=== PATIENT | female | born 1975 | race African-American/Black ===

== ENCOUNTER 2017-01-27 23:06 | Emergency (ER) | payer SELFPAY ==
--- NOTE | 2017-01-28 04:08 | ER Document Report ---
ED General - General Chief Complaint: Abscess Stated Complaint: LEFT BREAST CONCERNS Notes: Patient is a 41-year-old female presents for complaint of a swollen and painful area over her left breast. She knows 3 days ago. No fevers. No vomiting. No history of infections of her breasts. No other complaints this time. No abnormal discharge from the nipple area. No previous mammogram performed. TRAVEL OUTSIDE OF THE [place] IN LAST 30 DAYS: No - Related Data Allergies/Adverse Reactions: Iodinated Contrast Media - Oral and [IV Dye, Iodine Containing] Allergy ( Verified 05/01/14 17:50) seafood Allergy (Severe, Uncoded 05/01/14 17:50) Past Medical History - Social History Smoking Status: Unknown if Ever Smoked Frequency of alcohol use: None Drug Abuse: None Family History: Reviewed & Not Pertinent Patient has suicidal ideation: No Patient has homicidal ideation: No Renal/ Medical History: Reports: Hx Ovarian Cysts. Denies: Hx Peritoneal Dialysis - Immunizations Immunizations up to date: Yes Hx Diphtheria, Pertussis, Tetanus Vaccination: Yes Review of Systems - Review of Systems Notes: My Normal Review Basic REVIEW OF SYSTEMS: CONSTITUTIONAL : Denies fever, chills, or sweats. Denies recent illness. RESPIRATORY: Denies cough, cold, or chest congestion. Denies shortness of breath, difficulty breathing, or wheezing. GASTROINTESTINAL: Denies abdominal pain. Denies nausea, vomiting, or diarrhea. Denies constipation. Last BM: MUSCULOSKELETAL: Denies neck or back pain or joint pain or swelling. SKIN: breast lump HEMATOLOGIC : Denies easy bruising or bleeding. LYMPHATIC: Denies swollen, enlarged glands. NEUROLOGICAL: Denies altered mental status or loss of consciousness. Denies headache. Denies weakness or paralysis or loss of use of either side. Denies problems with gait or speech. Denies sensory or motor loss. ALL OTHER SYSTEMS REVIEWED AND NEGATIVE. Physical Exam - Vital signs Vitals: Temp Pulse Resp BP Pulse Ox 98.8 F 82 18 130/87 H 99 01/28/17 00:55 01/28/17 00:55 01/28/17 00:55 01/28/17 00:55 01/28/17 00:55 - Notes Notes: General Appearance: Well nourished, alert, cooperative, no acute distress, mild obvious discomfort. Vitals: reviewed, See vital signs table. Head: no swelling or tenderness to the head Eyes: PERRL, EOMI, Conjuctiva clear Lungs: No wheezing, No rales, No rhonci, No accessory muscle use, good air exchange bilaterally. Heart: Normal rate, Regular rythm, No murmur, no rub Chest wall: Firm not over the mid outer portion of the left breast. No redness or erythema. No significant swelling. Area is tender to touch. Breast exam was performed with a female tech in the room as hand i tube bender. Skin: warm, dry, appropriate color, no rash Neuro: speech clear, oriented x 3, normal affect, responds appropriately to questions. Course - Vital Signs Vital signs: Temp Pulse Resp BP Pulse Ox 98.8 F 82 18 130/87 H 99 01/28/17 00:55 01/28/17 00:55 01/28/17 00:55 01/28/17 00:55 01/28/17 00:55 - Transfer of Care Notes: 01/28/17 05:40 Ultrasound shows 2 cysts in the breast. This is over their wishes having tenderness and pain. They do not appear consistent with abscess on the ultrasound. Still place her on clindamycin initially case there is an associated infection. Only concern is because of the sudden onset of these cysts. Has no redness or warmth to the breast. No signs of cellulitis so she with this. I informed her is very important that she falls up with women's health clinic so that she can get a mammogram and also get repeat ultrasounds to follow the progression of the cysts. She's encouraged return to ER immediately if she has an is, swelling, fevers, or any concerns at her breast is becoming more swollen. Patient agrees with plan will be discharged home. Dictation of this chart was performed using voice recognition software; therefore, there may be some unintended grammatical errors. Discharge - Discharge Clinical Impression: Breast cyst Qualifiers: Laterality: left Qualified Code(s): N60.02 - Solitary cyst of left breast Condition: Good Disposition: HOME, SELF-CARE Additional Instructions: Your ultrasound showed a breast cyst. It does not appear consistent with an abscess on ultrasound. Because of the rapid onset of the cyst we will place you on an antibiotic in case there is any associated infection. It is very important you follow up with the Women's health clinic for potential mammogram and possible repeat ultrasound to ensure resolution of the cyst. Please return to [facility] ER immediately if you have increased swelling to the breast, fevers, or warmth to the breast. Prescriptions: Clindamycin HCl 300 mg PO ASDIR #56 capsule Referrals: LORAINE SMITH MD [ACTIVE STAFF] - 02/01/17
[2017-01-28] MEDS ORDERED: CLINDAMYCIN HCL 150 MG CAPSULE PO ONE (05:36)
[2017-01-28 06:54] VITALS: BP 126/76
== END 2017-01-28 06:53 | disposition home or self-care (01) ==
LOC: ER 23:06
DX: N60.02 Solitary cyst of left breast (principal); Z91.041 Radiographic dye allergy status; Z91.013 Allergy to seafood
CPT/HCPCS: 76604; 99283

== ENCOUNTER 2017-07-06 14:15 | Emergency (ER) | payer SELFPAY ==
--- NOTE | 2017-07-06 15:29 | ER Document Report ---
ED General - General Chief Complaint: Pain With Urination Stated Complaint: STOMACH PAIN Time Seen by Provider: 07/06/17 15:26 Mode of Arrival: Ambulatory Information source: Patient Notes: 6-year-old female presents with complaints of left flank pain radiating to her leg as well as burning with urination. 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 IN LAST 30 DAYS: No - HPI Onset: Just prior to arrival Onset/Duration: Sudden Quality of pain: Achy Severity: Mild Pain Level: 1 Associated symptoms: Body/muscle aches Exacerbated by: Movement Relieved by: Denies Similar symptoms previously: No Recently seen / treated by doctor: No - Related Data Allergies/Adverse Reactions: Iodinated Contrast- Oral and IV Dye [IV Dye, Iodine Containing] Allergy ( Verified 05/01/14 17:50) seafood Allergy (Severe, Uncoded 05/01/14 17:50) Past Medical History - General Last Menstrual Period: 06/02/17 - Social History Smoking Status: Current Every Day Smoker Cigarette use (# per day): Yes Chew tobacco use (# tins/day): No Smoking Education Provided: No Frequency of alcohol use: Heavy Drug Abuse: None Family History: Reviewed & Not Pertinent Renal/ Medical History: Reports: Hx Ovarian Cysts. Denies: Hx Peritoneal Dialysis - Immunizations Immunizations up to date: Yes Hx Diphtheria, Pertussis, Tetanus Vaccination: No Review of Systems - Review of Systems Notes: REVIEW OF SYSTEMS: CONSTITUTIONAL : Denies fever, chills, or sweats. Denies recent illness. EENT: Denies eye, ear, throat, or mouth pain or symptoms. Denies nasal or sinus congestion or discharge. Denies throat, tongue, or mouth swelling or difficulty swallowing. CARDIOVASCULAR: Denies chest pain. Denies palpitations or racing or irregular heart beat. Denies ankle edema. RESPIRATORY: Denies cough, cold, or chest congestion. Denies shortness of breath, difficulty breathing, or wheezing. GASTROINTESTINAL: Denies abdominal pain or distention. Denies nausea, vomiting , or diarrhea. Denies blood in vomitus, stools, or per rectum. Denies black, tarry stools. Denies constipation. GENITOURINARY: Denies difficulty urinating, painful urination, burning, frequency, blood in urine, or discharge. FEMALE GENITOURINARY: Denies vaginal bleeding, heavy or abnormal periods, irregular periods. Denies vaginal discharge or odor. MUSCULOSKELETAL: Admits to left flank pain SKIN: Denies rash, lesions or sores. HEMATOLOGIC : Denies easy bruising or bleeding. LYMPHATIC: Denies swollen, enlarged glands. NEUROLOGICAL: Denies confusion or altered mental status. Denies passing out or loss of consciousness. Denies dizziness or lightheadedness. Denies headache. Denies weakness or paralysis or loss of use of either side. Denies problems with gait or speech. Denies sensory loss, numbness, or tingling. Denies seizures. PSYCHIATRIC: Denies anxiety or stress. Denies depression, suicidal ideation, or homicidal ideation. ALL OTHER SYSTEMS REVIEWED AND NEGATIVE. PHYSICAL EXAMINATION: GENERAL: Well-appearing, well-nourished and in no acute distress. HEAD: Atraumatic, normocephalic. EYES: Pupils equal round and reactive to light, extraocular movements intact, conjunctiva are normal. ENT: Nares patent, oropharynx clear without exudates. Moist mucous membranes. NECK: Normal range of motion, supple without lymphadenopathy LUNGS: Breath sounds clear to auscultation bilaterally and equal. No wheezes rales or rhonchi. HEART: Regular rate and rhythm without murmurs ABDOMEN: Soft, nontender, nondistended abdomen. No guarding, no rebound. No masses appreciated. Female : deferred Musculoskeletal: Normal range of motion, no pitting or edema. No cyanosis. NEUROLOGICAL: Cranial nerves grossly intact. Normal speech, normal gait. Normal sensory, motor exams PSYCH: Normal mood, normal affect. SKIN: Warm, Dry, normal turgor, no rashes or lesions noted. Dictation was performed using [employer] voice recognition software Physical Exam - Vital signs Vitals: Temp Pulse Resp BP Pulse Ox 97.7 F 83 20 133/89 H 99 07/06/17 14:26 07/06/17 14:26 07/06/17 14:26 07/06/17 14:26 07/06/17 14:26 Course - Re-evaluation Re-evalutation: 07/06/17 18:45 Patient's urinalysis noted no sign of infection however there was blood noted in the urine therefore CT was sent, no abnormality was seen there either. Patient will be given anti-inflammatories pain control as well as follow-up with her primary care physician. Patient biggest complaint is a work excuse until Monday which I will provide her. She otherwise looks well has no cauda equina concerns therefore I believe she is stable for discharge After performing a Medical Screening Examination, I estimate there is LOW risk for EXPANDING OR RUPTURED ABDOMINAL AORTIC ANEURYSM, CAUDA EQUINA SYNDROME, EPIDURAL MASS LESION, or HERNIATED DISK CAUSING SEVERE SPINAL STENOSIS, thus I consider the discharge disposition reasonable. I have reevaluated this patient multiple times and no significant life threatening changes are noted. The patient and I have discussed the diagnosis and risks, and we agree with discharging home and close follow-up. We also discussed returning to the Emergency Department immediately if new or worsening symptoms occur with the understanding that symptoms and presentations can change. We have discussed the symptoms which are most concerning (e.g., saddle anesthesia, urinary or bowel incontinence or retention, changing or worsening pain) that necessitate immediate return. - Vital Signs Vital signs: Temp Pulse Resp BP Pulse Ox 98.7 F 69 20 117/73 100 07/06/17 17:43 07/06/17 17:43 07/06/17 17:43 07/06/17 17:43 07/06/17 17:43 - Laboratory Laboratory results interpreted by me: 07/06/17 14:25 Urine Protein 30 H Urine Blood LARGE H - Diagnostic Test Radiology reviewed: Image reviewed, Reports reviewed - no acute abnormality Discharge - Discharge Clinical Impression: Flank pain Condition: Stable Disposition: HOME, SELF-CARE Instructions: Flank Pain ([facility]) Additional Instructions: Follow up with your physician tomorrow for further care or return to the ED IMMEDIATELY if symptoms worsen or new concerns occur. If you cannot afford to follow up with your primary care physician a list of low cost clinics have been provided at the end of your discharge papers as well. Prescriptions: Hydrocodone/Acetaminophen [[place] 5-325 mg Tablet] 1 tab PO Q6 #8 tablet Forms: Return to Work
[2017-07-06 16:41] LABS: AMORPHOUS SEDIMENT,URINE TRACE /HPF; APPEARANCE,URINE TURBID; BILIRUBIN,URINE NEGATIVE (NEGATIVE); GLUCOSE, URINE NEGATIVE (NEGATIVE); KETONES,URINE NEGATIVE (NEGATIVE); LEUKOCYTE ESTERASE,URINE NEGATIVE (NEGATIVE); NITRITE,URINE NEGATIVE (NEGATIVE); PROTEIN,URINE 30 mg/dL (NEGATIVE); URINE SPECIFIC GRAVITY 1.027; UROBILINOGEN,URINE NEGATIVE mg/dL (<2.0)
--- NOTE | 2017-07-06 17:24 | RADIOLOGY REPORT (SQ) ---
EXAM DESCRIPTION: CT LTD RENAL STONE PROTOCOL ON COMPLETED DATE/TIME: 07/06/2017 5:07 pm REASON FOR STUDY: left flank pain COMPARISON: None. TECHNIQUE: CT scan of the abdomen and pelvis performed without intravenous or oral contrast. Images reviewed with lung, soft tissue, and bone windows. Reconstructed coronal and sagittal MPR images revi ewed. All images stored on PACS. All CT scanners at this facility use dose modulation, iterative reconstruction, and/or weight based d osing when appropriate to reduce radiation dose to as low as reasonably achievable (ALARA). [facility]: Dose Right [facility]: CareDose [facility]: Dose Right [facility]: Teradose 4D [facility]: Smart [employer] RADIATION DOSE: Up-to-date CT equipment and radiation dose reduction techniques were employed. CTDIv ol: 5.1 mGy. DLP: 276 mGy-cm.mGy. LIMITATIONS: None. FINDINGS: LOWER CHEST: No significant findings. No nodules or infiltrates. NON-CONTRASTED LIVER, SPLEEN, ADRENALS: Evaluation limited by lack of IV contrast. No identified sign ificant masses. PANCREAS: No masses. No peripancreatic inflammatory changes. GALLBLADDER: No identified stones by CT criteria. No inflammatory changes to suggest cholecystitis. RIGHT KIDNEY AND URETER: No suspicious masses. Assessment limited by lack of IV contrast. No signif icant calcifications. No hydronephrosis or hydroureter. LEFT KIDNEY AND URETER: No suspicious masses. Assessment limited by lack of IV contrast. No signifi cant calcifications. No hydronephrosis or hydroureter. AORTA AND RETROPERITONEUM: No aneurysm. No retroperitoneal masses or adenopathy. BOWEL AND PERITONEAL CAVITY: No obvious masses or inflammatory changes. No free fluid. APPENDIX: Normal. PELVIS, BLADDER, AND ABDOMINAL WALL:No abnormal masses. No free fluid. Bladder normal. BONES: No significant findings. OTHER: No other significant finding. IMPRESSION: NO ACUTE PROCESS IN THE ABDOMEN OR PELVIS. COMMENT: Quality ID # [id number]: Final reports with documentation of one or more dose reduction techniques (e.g., Automated exposure control, adjustment of the mA and/or kV according to patient size, use of iterative reconstruction technique) TECHNICAL DOCUMENTATION: JOB ID: [id number] 1895 [employer]- All Rights Reserved
[2017-07-06 17:45] VITALS: BP 117/73
== END 2017-07-06 17:43 | disposition home or self-care (01) ==
LOC: ER 14:15
DX: R30.0 Dysuria (principal); R10.9 Unspecified abdominal pain; M79.1 Myalgia; F17.210 Nicotine dependence, cigarettes, uncomplicated
CPT/HCPCS: 76380; 81001; 81025; 99284

== ENCOUNTER 2018-03-12 15:59 | Emergency (ER) | payer SELFPAY ==
[2018-03-12] MEDS ORDERED: ASPIRIN 81 MG TABLET, CHEWABLE PO ONE (16:53)
--- NOTE | 2018-03-12 16:53 | ER Document Report ---
ED Medical Screen (RME) - General Chief Complaint: Back Pain Stated Complaint: BACK PAIN Time Seen by Provider: 03/12/18 16:47 Mode of Arrival: Medic Information source: Patient Notes: 42-year-old female presents with complaints of epigastric abdominal pain rating to her back and up through her chest. Patient admits to nausea vomiting denies any fevers or chills Patient denies any medical history I have greeted and performed a rapid initial assessment of this patient. A comprehensive ED assessment and evaluation of the patient, analysis of test results and completion of the medical decision making process will be conducted by additional ED providers. PHYSICAL EXAMINATION: GENERAL: Well-appearing, well-nourished and in no acute distress. HEAD: Atraumatic, normocephalic. EYES: Pupils equal round extraocular movements intact, conjunctiva are normal. ENT: Nares patent NECK: Normal range of motion LUNGS: No respiratory distress Musculoskeletal: Normal range of motion NEUROLOGICAL: Normal speech, normal gait. PSYCH tearful SKIN: Warm, Dry, normal turgor, no rashes or lesions noted. TRAVEL OUTSIDE OF THE [place] IN LAST 30 DAYS: No - Related Data Allergies/Adverse Reactions: Iodinated Contrast- Oral and IV Dye [IV Dye, Iodine Containing] Allergy ( Verified 03/12/18 16:01) seafood Allergy (Severe, Uncoded 03/12/18 16:01) Past Medical History - Social History Frequency of alcohol use: None Drug Abuse: None Renal/ Medical History: Reports: Hx Ovarian Cysts. Denies: Hx Peritoneal Dialysis - Immunizations Immunizations up to date: Yes Hx Diphtheria, Pertussis, Tetanus Vaccination: No History of Influenza Vaccine for 07/2017 - 11/2017 Season: No Physical Exam - Vital signs Vitals: Temp Pulse Resp BP Pulse Ox 98.6 F 66 20 133/78 H 100 03/12/18 16:11 03/12/18 16:11 03/12/18 16:11 03/12/18 16:11 03/12/18 16:11 Course - Vital Signs Vital signs: Temp Pulse Resp BP Pulse Ox 98.6 F 66 20 133/78 H 100 03/12/18 16:11 03/12/18 16:11 03/12/18 16:11 03/12/18 16:11 03/12/18 16:11
[2018-03-12 17:03] LABS: ABSOLUTE EOSINOPHILS # (AUTO) 0.1 10^3/uL (0.0-0.6); ABSOLUTE LYMPHOCYTES (AUTO) 1.6 10^3/uL (0.5-4.7); ABSOLUTE MONOCYTES (AUTO) 0.7 10^3/uL (0.1-1.4); ABSOLUTE NEUT (AUTO) 3.5 10^3/uL (1.7-8.2); BASOPHILS % (AUTO) 0.7 % (0-2); EOSINOPHILS % (AUTO) 1.5 % (0-6); HEMATOCRIT 32.7 % (36.0-47.0); HEMOGLOBIN 10.5 g/dL (12.0-15.5); LYMPHOCYTES % (AUTO) 27.1 % (13-45); MEAN CORPUSCULAR HEMOGLOBIN 23.4 pg (27.0-33.4); MEAN CORPUSCULAR HGB CONC 32.1 g/dL (32.0-36.0); MEAN CORPUSCULAR VOLUME 73 fl (80-97); MONOCYTES % (AUTO) 11.9 % (3-13); PLATELET COUNT 313 10^3/uL (150-450); RED BLOOD COUNT 4.47 10^6/uL (3.72-5.28); RED CELL DISTRIBUTION WIDTH 17.9 % (11.5-14.0); SEGMENTED NEUTROPHILS % (AUTO) 58.8 % (42-78); TOTAL CELLS COUNTED % (AUTO) 100 %
[2018-03-12 17:09] LABS: ALANINE AMINOTRANSFERASE 15 U/L (9-52); ALBUMIN 4.1 g/dL (3.5-5.0); ALKALINE PHOSPHATASE 62 U/L (38-126); ANION GAP 14 (5-19); ASPARTATE AMINO TRANSFERASE 29 U/L (14-36); BILIRUBIN,DIRECT 0.5 mg/dL (0.0-0.4); BILIRUBIN,TOTAL 0.5 mg/dL (0.2-1.3); BLOOD UREA NITROGEN 17 mg/dL (7-20); CALCIUM 9.3 mg/dL (8.4-10.2); CARBON DIOXIDE 22 mmol/L (22-30); CHLORIDE 102 mmol/L (98-107); CREATINE KINASE 87 U/L (30-135); GLUCOSE 95 mg/dL (75-110); LIPASE 46.6 U/L (23-300); POTASSIUM 4.2 mmol/L (3.6-5.0); SODIUM 138.2 mmol/L (137-145); TOTAL PROTEIN 6.9 g/dL (6.3-8.2)
[2018-03-12 17:23] LABS: CREATINE KINASE MB 0.28 ng/mL (<4.55)
[2018-03-12 17:24] LABS: TROPONIN I < 0.012 ng/mL
--- NOTE | 2018-03-12 17:40 | RADIOLOGY REPORT (SQ) ---
EXAM DESCRIPTION: CHEST SINGLE VIEW COMPLETED DATE/TIME: 03/12/2018 5:32 pm REASON FOR STUDY: chest pain COMPARISON: 07/08/2011 EXAM PARAMETERS: NUMBER OF VIEWS: One view. TECHNIQUE: Single frontal radiographic view of the chest acquired. RADIATION DOSE: NA LIMITATIONS: None. FINDINGS: LUNGS AND PLEURA: No opacities, masses or pneumothorax. No pleural effusion. MEDIASTINUM AND HILAR STRUCTURES: No masses. Contour normal. HEART AND VASCULAR STRUCTURES: Heart normal in size. Normal vasculature. BONES: No acute findings. HARDWARE: None in the chest. OTHER: No other significant finding. IMPRESSION: NO ACUTE RADIOGRAPHIC FINDING IN THE CHEST. TECHNICAL DOCUMENTATION: JOB ID: [id number] [place]-72 2010 [employer]- All Rights Reserved Reading location - IP/workstation name: [email or web address]
--- NOTE | 2018-03-12 18:23 | EKG REPORT ---
SEVERITY:- ABNORMAL ECG - SINUS RHYTHM CONSIDER LEFT VENTRICULAR HYPERTROPHY : Confirmed by: Bay Fritz MD 12-Mar-2018 18:23:15
[2018-03-12 18:26] LABS: APPEARANCE,URINE CLOUDY; BILIRUBIN,URINE NEGATIVE (NEGATIVE); COLOR,URINE AMBER; GLUCOSE, URINE NEGATIVE (NEGATIVE); KETONES,URINE 20 mg/dL (NEGATIVE); LEUKOCYTE ESTERASE,URINE NEGATIVE (NEGATIVE); NITRITE,URINE NEGATIVE (NEGATIVE); PROTEIN,URINE 30 mg/dL (NEGATIVE); URINE SPECIFIC GRAVITY 1.027
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
[2018-03-12] MEDS ORDERED: NORMAL SALINE 1000 ML 1,000 ML IV PRN (18:41)
[2018-03-12] MEDS ORDERED: FENTANYL CITRATE INJ/PF 100 MCG/2 ML AMPUL IV ONE (18:41)
[2018-03-12] MEDS ORDERED: DIPHENHYDRAMINE HCL 50 MG/ML VIAL IV ONE (18:41)
[2018-03-12] MEDS ORDERED: ONDANSETRON HCL INJ/PF 4 MG/2 ML SDV IV ONE (18:42)
[2018-03-12] MEDS ORDERED: ONDANSETRON 4 MG TAB.RAPDIS PO ONE (18:49)
--- NOTE | 2018-03-12 19:29 | RADIOLOGY REPORT (SQ) ---
EXAM DESCRIPTION: CT ABD/PELVIS NO ORAL OR IV COMPLETED DATE/TIME: 03/12/2018 7:11 pm REASON FOR STUDY: BACK PAIN, ABDOMINAL PAIN COMPARISON: 04/29/2014 TECHNIQUE: CT scan of the abdomen and pelvis performed without intravenous or oral contrast. Images reviewed with lung, soft tissue, and bone windows. Reconstructed coronal and sagittal MPR images revi ewed. All images stored on PACS. All CT scanners at this facility use dose modulation, iterative reconstruction, and/or weight based d osing when appropriate to reduce radiation dose to as low as reasonably achievable (ALARA). [facility]: Dose Right [facility]: CareDose [facility]: Dose Right [facility]: Teradose 4D [facility]: [employer] RADIATION DOSE: CT Rad equipment meets quality standard of care and radiation dose reduction techniq ues were employed. CTDIvol: 4.8 mGy. DLP: 255 mGy-cm.mGy. LIMITATIONS: None. FINDINGS: LOWER CHEST: No significant findings. No nodules or infiltrates. NON-CONTRASTED LIVER, SPLEEN, ADRENALS: Evaluation limited by lack of IV contrast. No identified sign ificant masses. PANCREAS: No masses. No peripancreatic inflammatory changes. GALLBLADDER: No identified stones by CT criteria. No inflammatory changes to suggest cholecystitis. RIGHT KIDNEY AND URETER: No suspicious masses. Assessment limited by lack of IV contrast. No signif icant calcifications. No hydronephrosis or hydroureter. LEFT KIDNEY AND URETER: No suspicious masses. Assessment limited by lack of IV contrast. No signifi cant calcifications. No hydronephrosis or hydroureter. AORTA AND RETROPERITONEUM: No aneurysm. No retroperitoneal masses or adenopathy. BOWEL AND PERITONEAL CAVITY: No obvious masses or inflammatory changes. No free fluid. APPENDIX: Normal. PELVIS, BLADDER, AND ABDOMINAL WALL:Multi fibroid uterus. No free fluid. Bladder normal. BONES: No significant findings. OTHER: No other significant finding. IMPRESSION: NO ACUTE PROCESS IN THE ABDOMEN OR PELVIS. COMMENT: Quality ID # [id number]: Final reports with documentation of one or more dose reduction techniques (e.g., Automated exposure control, adjustment of the mA and/or kV according to patient size, use of iterative reconstruction technique) TECHNICAL DOCUMENTATION: JOB ID: [id number] [place]-72 2010 [employer] [place]- All Rights Reserved Reading location - IP/workstation name: [employer]
[2018-03-12] MEDS ORDERED: DIAZEPAM 5 MG TABLET PO ONE (19:31)
[2018-03-12 22:22] VITALS: BP 99/62
== END 2018-03-12 22:28 | disposition home or self-care (01) ==
LOC: ER 15:59
DX: M54.5 Low back pain (principal); R10.84 Generalized abdominal pain; R07.9 Chest pain, unspecified; F17.200 Nicotine dependence, unspecified, uncomplicated
CPT/HCPCS: 93005; 99284; 96374; 96375; 36415; 82553; 82550; 83690; 85025; 81025; 80053; 81001; 84484; 71045; 74176; 93010; J1200; S0119; J3010

== ENCOUNTER 2018-03-16 15:57 | Emergency (ER) | payer SELFPAY ==
[2018-03-16] MEDS ORDERED: METOCLOPRAMIDE HCL INJ/PF 10 MG/2 ML SDV IM ONE (16:22)
[2018-03-16] MEDS ORDERED: DICYCLOMINE HCL 20 MG TABLET PO ONE (16:23)
--- NOTE | 2018-03-16 16:23 | ER Document Report ---
ED Medical Screen (RME) - General Chief Complaint: Abdominal Pain Stated Complaint: STOMACH/BACK PAIN, VOMITING Time Seen by Provider: 03/16/18 16:18 Notes: RAPID MEDICAL EVALUATION DISCLOSURE I have seen this patient as part of a Rapid Medical Evaluation and, if applicable, placed any initially appropriate orders. The patient will be seen and fully evaluated, including a full history and physical exam, by a provider ( in Main ED or Fast Track) when a room becomes available. 42-year-old female PMH chronic abdominal/back/chest pain ongoing for many years usually twice per month here with complaints of same. She was seen here Monday for the same thing and had unremarkable CT abdomen and chest x-ray as well as 2 negative troponins. She states that the symptoms started back up again the day after the ED visit. The medication she was prescribed for nausea is not helping and she states it is making her "throw up more". EXAM Right paraspinal lumbar muscle TTP Mild diffuse abdominal TTP TRAVEL OUTSIDE OF THE [place] IN LAST 30 DAYS: No - Related Data Allergies/Adverse Reactions: Iodinated Contrast- Oral and IV Dye [IV Dye, Iodine Containing] Allergy ( Verified 03/16/18 16:02) seafood Allergy (Severe, Uncoded 03/16/18 16:02) Past Medical History Renal/ Medical History: Reports: Hx Ovarian Cysts. Denies: Hx Peritoneal Dialysis Past Surgical History: Reports: Other - THORACOTOMY - Immunizations Immunizations up to date: Yes Hx Diphtheria, Pertussis, Tetanus Vaccination: No History of Influenza Vaccine for 07/2017 - 11/2017 Season: No Physical Exam - Vital signs Vitals: Temp Pulse Resp BP Pulse Ox 98.8 F 101 H 20 138/101 H 100 03/16/18 16:09 03/16/18 16:09 03/16/18 16:09 03/16/18 16:03/16/18 16:09 Course - Vital Signs Vital signs: Temp Pulse Resp BP Pulse Ox 98.8 F 101 H 20 138/101 H 100 03/16/18 16:03/16/18 16:03/16/18 16:03/16/18 16:03/16/18 16:09
[2018-03-16 16:53] LABS: ABSOLUTE EOSINOPHILS # (AUTO) 0.2 10^3/uL (0.0-0.6); ABSOLUTE LYMPHOCYTES (AUTO) 1.1 10^3/uL (0.5-4.7); ABSOLUTE MONOCYTES (AUTO) 0.8 10^3/uL (0.1-1.4); ABSOLUTE NEUT (AUTO) 4.1 10^3/uL (1.7-8.2); BASOPHILS % (AUTO) 0.4 % (0-2); EOSINOPHILS % (AUTO) 2.6 % (0-6); HEMATOCRIT 36.6 % (36.0-47.0); HEMOGLOBIN 11.7 g/dL (12.0-15.5); LYMPHOCYTES % (AUTO) 17.6 % (13-45); MEAN CORPUSCULAR HEMOGLOBIN 23.1 pg (27.0-33.4); MEAN CORPUSCULAR HGB CONC 31.9 g/dL (32.0-36.0); MEAN CORPUSCULAR VOLUME 73 fl (80-97); MONOCYTES % (AUTO) 13.1 % (3-13); PLATELET COUNT 393 10^3/uL (150-450); RED BLOOD COUNT 5.05 10^6/uL (3.72-5.28); RED CELL DISTRIBUTION WIDTH 18.1 % (11.5-14.0); SEGMENTED NEUTROPHILS % (AUTO) 66.3 % (42-78); TOTAL CELLS COUNTED % (AUTO) 100 %; WHITE BLOOD COUNT 6.2 10^3/uL (4.0-10.5)
[2018-03-16 16:58] LABS: APPEARANCE,URINE SLIGHTLY-CLOUDY; BILIRUBIN,URINE SMALL (NEGATIVE); COLOR,URINE AMBER; GLUCOSE, URINE NEGATIVE (NEGATIVE); KETONES,URINE 80 mg/dL (NEGATIVE); LEUKOCYTE ESTERASE,URINE NEGATIVE (NEGATIVE); NITRITE,URINE NEGATIVE (NEGATIVE); PROTEIN,URINE 100 mg/dL (NEGATIVE); URINE SPECIFIC GRAVITY 1.027
[2018-03-16] MEDS ORDERED: NORMAL SALINE 1000 ML 1,000 ML IV ONE (17:00)
[2018-03-16 17:03] LABS: ALANINE AMINOTRANSFERASE 30 U/L (9-52); ALKALINE PHOSPHATASE 48 U/L (38-126); ANION GAP 15 (5-19); ASPARTATE AMINO TRANSFERASE 28 U/L (14-36); BILIRUBIN,DIRECT 0.3 mg/dL (0.0-0.4); BILIRUBIN,TOTAL 0.7 mg/dL (0.2-1.3); BLOOD UREA NITROGEN 11 mg/dL (7-20); CALCIUM 9.8 mg/dL (8.4-10.2); CARBON DIOXIDE 24 mmol/L (22-30); CHLORIDE 102 mmol/L (98-107); GLUCOSE 90 mg/dL (75-110); LIPASE 43.8 U/L (23-300); POTASSIUM 3.9 mmol/L (3.6-5.0); SODIUM 141.3 mmol/L (137-145); TOTAL PROTEIN 8.2 g/dL (6.3-8.2)
[2018-03-16] MEDS ORDERED: LIDOCAINE 2% VISCOUS SOLN 20 ML UDCUP PO ONE (17:11)
[2018-03-16] MEDS ORDERED: MAG HYDROX/AL HYDROX/SIMETH SUSP 30 ML UDCUP PO ONE (17:11)
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
[2018-03-16] MEDS ORDERED: OXYCODONE-ACETAMINOPHEN 5-325 MG TABLET PO ONE (17:23)
[2018-03-16] MEDS ORDERED: LANSOPRAZOLE 30 MG TAB.RAP.DR PO ONE (18:11)
[2018-03-16 19:49] VITALS: BP 113/65
== END 2018-03-16 19:42 | disposition home or self-care (01) ==
LOC: ER 15:57
DX: K29.20 Alcoholic gastritis without bleeding (principal); R10.13 Epigastric pain; M54.5 Low back pain; M54.6 Pain in thoracic spine; M54.9 Dorsalgia, unspecified; R11.10 Vomiting, unspecified; R19.7 Diarrhea, unspecified; F17.200 Nicotine dependence, unspecified, uncomplicated; Z72.89 Other problems related to lifestyle
CPT/HCPCS: 99284; 96372; 96360; 36415; 83690; 84703; 85025; 80053; 81001; J3490 ×2; J2765; J7030

== ENCOUNTER 2019-03-07 14:16 | Emergency (ER) | payer SELFPAY ==
[2019-03-07] MEDS ORDERED: LIDOCAINE 2% VISCOUS SOLN 20 ML UDCUP PO ONE (14:46)
--- NOTE | 2019-03-07 15:08 | ER Document Report ---
HPI - HPI Time Seen by Provider: 03/07/19 14:45 Pain Level: 2 Notes: Patient is a 43-year-old female who presents to the ED complaining of left lower dental pain #18 x3 days. She has not noticed any obvious purulent discharge. Patient states that she is still able to eat and drink, but does have a decreased p.o. intake due to the pain. She has tried some natf-qpe-vcpopgu meds with minimal relief. No other concerns or complaints. She has a dental appointment in 1 week. Denies any headache, fever, head injury, neck pain, hoarseness, drooling, URI, sore throat, chest pain, palpitations, syncope, cough, shortness of breath, wheeze, dyspnea, abdominal pain, [place]/vomiting/diarrhea, urinary retention, dysuria, hematuria, or rash. - ROS Systems Reviewed and Negative: Yes All other systems reviewed and negative - CONSTITUTIONAL Constitutional: DENIES: Fever, Chills - REPRODUCTIVE Reproductive: DENIES: : Past Medical History - Social History Smoking Status: Current Every Day Smoker Frequency of alcohol use: Heavy Drug Abuse: Marijuana Family History: Reviewed & Not Pertinent Patient has suicidal ideation: No Patient has homicidal ideation: No Renal/ Medical History: Reports: Hx Ovarian Cysts. Denies: Hx Peritoneal Dialysis Past Surgical History: Reports: Other - THORACOTOMY - Immunizations Immunizations up to date: Yes Hx Diphtheria, Pertussis, Tetanus Vaccination: No Vertical Provider Document - CONSTITUTIONAL Agree With Documented VS: Yes Notes: PHYSICAL EXAMINATION: GENERAL: Well-appearing, well-nourished and in no acute distress. HEAD: Atraumatic, normocephalic. EYES: Pupils equal round and reactive to light, extraocular movements intact, sclera anicteric, conjunctiva are normal. ENT: EAC clear b/l. TM's intact b/l without erythema, fluid, or perforation. Nares patent and without discharge. oropharynx clear without exudates. No tonsilar hypertrophy or erythema. Moist mucous membranes. No sinus tenderness. Uvula midline. No palatine shift. No tongue protrusion. No respiratory compromise. Mouth: Poor dentition. + mild decay and mild gingivitis. + very small abscess noted left buccal mucosal area (pt declining to allow I&D). No facial swelling. + tenderness to tooth #18. NECK: Normal range of motion, supple without lymphadenopathy. No rigidity/meningismus. LUNGS: Breath sounds clear to auscultation bilaterally and equal. No wheezes rales or rhonchi. HEART: Regular rate and rhythm without murmurs, rubs, gallops. NEUROLOGICAL: Cranial nerves grossly intact. Normal speech, normal gait. PSYCH: Normal mood, normal affect. SKIN: Warm, Dry, normal turgor, no rashes or lesions noted. - INFECTION CONTROL TRAVEL OUTSIDE OF THE [place] IN LAST 30 DAYS: No Course - Re-evaluation Re-evalutation: 03/07/19 15:01 Patient is an afebrile, well-hydrated, 43-year-old female who presents to the ED with dental pain, suspect nerve root etiology/infection. Vitals are acceptable. PE is otherwise unremarkable. No labs or imaging warranted at this time based on H&P. Pt declining I&D after risk/benefit. Viscous lidocaine dispensed today. I will send her home with a prescription for cleocin. Low suspicion for any meningitis, sepsis, peritonsillar/pharyngeal abscess, respiratory compromise, Fei's, temporal arteritis, or other emergent systemic condition at this time. Patient is aware this condition can change from initial presentation and she needs to monitor symptoms closely. Conservative measures otherwise for symptoms. Keep appointment with a dentist for further evaluation and management. Recheck with your PCM this week as well. Return to the ED with any worsening/concerning symptoms otherwise as reviewed in discharge. Patient is in agreement. - Vital Signs Vital signs: Temp Pulse Resp BP Pulse Ox 98.8 F 87 16 121/70 100 03/07/19 14:28 03/07/19 14:28 03/07/19 14:28 03/07/19 14:28 03/07/19 14:28 Discharge - Discharge Clinical Impression: Pain, dental Condition: Stable Disposition: HOME, SELF-CARE Instructions: Clindamycin ([facility]), Toothache ([facility]) Additional Instructions: [place] and floss twice daily Maintain fluid intake Take antibiotics as directed Mouthwash, salt water gargles, peroxide rinse as needed Tylenol/ibuprofen as needed Recheck with PCM this week Keep appointment with your dentist for further evaluation Return to the ED with any worsening symptoms and/or development of fever, headache, facial swelling, swelling of lips/tongue/throat, trouble swallowing, drooling, hoarseness, neck pain/stiffness, chest pain, palpitations, syncope, shortness of breath, trouble breathing, abdominal pain, n/v/d, numbness/tingling, or other worsening symptoms that are concerning to you. Prescriptions: Clindamycin HCl [Cleocin 300 mg Capsule] 300 mg PO QID #40 capsule Forms: Smoking Cessation Education Referrals: [facility] [Provider Group] - Follow up as needed
[2019-03-07 15:13] VITALS: BP 121/79
== END 2019-03-07 15:20 | disposition home or self-care (01) ==
LOC: ER 14:16
DX: K08.9 Disorder of teeth and supporting structures, unspecified (principal); F17.200 Nicotine dependence, unspecified, uncomplicated
CPT/HCPCS: 99282; J3490

== ENCOUNTER 2019-06-04 07:41 | Emergency (ER) | payer SELFPAY ==
[2019-06-04 07:44] VITALS: BP 127/76
[2019-06-04] MEDS ORDERED: PREDNISONE 20 MG TABLET PO ONE (08:09)
[2019-06-04] MEDS ORDERED: HYDROCODONE/ACETAMINOPHEN 5-325 MG (6 TAB/ER DISP) PO PRN (08:09)
[2019-06-04] MEDS ORDERED: PENICILLIN V POTASSIUM 500 MG TABLET PO ONE (08:10)
--- NOTE | 2019-06-04 15:10 | ER Document Report ---
Entered by ITALO DOBBINS SCRIBE 06/04/19 0810 Acting as scribe for:JANIYA HOSKINS MD ED ENT - General Chief Complaint: Ear Pain Stated Complaint: EAR PAIN Time Seen by Provider: 06/04/19 07:55 Mode of Arrival: Ambulatory Information source: Patient Notes: Patient is a 44 year old female that presents to the emergency department today with complaints of left sided ear and jaw pain. Patient states she thinks it might be coming from a bad tooth. Patient states her pain is exacerbated with movement of her jaw including chewing. TRAVEL OUTSIDE OF THE [place] IN LAST 30 DAYS: No - Related Data Allergies/Adverse Reactions: Iodinated Contrast Media [IV Dye, Iodine Containing] Allergy (Verified 06/04/19 07:41) seafood Allergy (Severe, Uncoded 06/04/19 07:41) Past Medical History - General Information source: Patient - Social History Smoking Status: Current Every Day Smoker Cigarette use (# per day): Yes Frequency of alcohol use: Heavy Drug Abuse: None Lives with: Family Family History: Reviewed & Not Pertinent Patient has suicidal ideation: No Patient has homicidal ideation: No Renal/ Medical History: Reports: Hx Ovarian Cysts Past Surgical History: Reports: Other - THORACOTOMY - Immunizations Immunizations up to date: Yes Hx Diphtheria, Pertussis, Tetanus Vaccination: No Review of Systems - Review of Systems Constitutional: No symptoms reported EENT: See HPI, Other - left ear pain, jaw pain, mouth pain Cardiovascular: No symptoms reported Respiratory: No symptoms reported Gastrointestinal: No symptoms reported Genitourinary: No symptoms reported Female Genitourinary: No symptoms reported Musculoskeletal: No symptoms reported Skin: No symptoms reported Hematologic/Lymphatic: No symptoms reported Neurological/Psychological: No symptoms reported -: Yes All other systems reviewed and negative Physical Exam - Vital signs Vitals: Temp Pulse Resp BP Pulse Ox 97.6 F 94 18 127/76 H 97 06/04/19 07:43 06/04/19 07:43 06/04/19 07:43 06/04/19 07:43 06/04/19 07:43 - Notes Notes: Physical Exam: General: Alert, appears well. HEENT: Normocephalic. Atraumatic. PERRLA. Extraocular movements intact. Oropharynx clear. Tenderness with palpation of left lower 3rd molar, tooth has not completely erupted, no gum swelling, no abscess formation. TMJ clicks bilaterally with opening and closing of mouth. Left TMJ is very tender with palpation. Pain with movement of the jaw to left and right. Neck: Supple. Respiratory: No respiratory distress. Abdominal: Normal Inspection. No distension. Extremities: Moves all four extremities. Neurological: Normal cognition. AAOx4. Normal speech. Psychological: Normal affect. Normal Mood. Skin: Warm. Dry. Normal color. Course - Vital Signs Vital signs: Temp Pulse Resp BP Pulse Ox 97.6 F 94 18 127/76 H 97 06/04/19 07:43 06/04/19 07:43 06/04/19 07:43 06/04/19 07:43 06/04/19 07:43 Discharge - Discharge Clinical Impression: TMJ (temporomandibular joint syndrome), Toothache Condition: Stable Disposition: HOME, SELF-CARE Additional Instructions: Temporomandibular Joint Syndrome (TMJ) You have TMJ syndrome. TMJ syndrome is caused by injury or degeneration of the temporomandibular joint, where the jaw joins the skull. Symptoms can include pain in the episcopal or in front of the ear, headaches, clicking with jaw motion, locking of the jaw, and trouble fitting the teeth together. Some cases of TMJ syndrome go away with antiinflammatory medicine. Others require surgery. Sometimes a dental appliance at night helps. You may require special x-rays to evaluate the joint. If the symptoms resolve quickly, you may not need further care. If symptoms are chronic or recurrent, we'll refer you to a specialist for evaluation. The joint should be rested. Stay on a diet that requires no chewing -- such as milkshakes, applesauce, and puddings. Avoid any motion of the jaw which provokes pain. Periodic ice packs help decrease swelling and pain. You should follow up as instructed, and call the physician if you have any problems. Your exam suggest that your pain is all due to the temporomandibular joint syndrome. You do have some pain on percussing your left lower third molar. Due to your history of dental infections, and the inability to be certain that a ll the pain is the TMJ syndrome and not coming from the tooth, we will treat any possible dental infection with penicillin. You will be on prednisone to calm the inflammation of the temporomandibular joint. You are given today's dose here in the emergency room, so you will start the prednisone tomorrow. Take your 800 mg ibuprofen every 8 hours. Follow-up with a local dentist who specializes in temporomandibular joint (TMJ) syndrome management. RETURN TO THE EMERGENCY ROOM IF ANY NEW OR WORSENING SYMPTOMS. Prescriptions: Prednisone [Deltasone 10 mg Tablet] 10 mg PO ASDIR PRN #21 tablet PRN Reason: Scribe Attestation: 06/04/19 08:16 I personally performed the services described in the documentation, reviewed and edited the documentation which was dictated to the scribe in my presence, and it accurately records my words and actions. I personally performed the services described in the documentation, reviewed and edited the documentation which was dictated to the scribe in my presence, and it accurately records my words and actions.
== END 2019-06-04 08:28 | disposition home or self-care (01) ==
LOC: ER 07:41
DX: M26.603 Bilateral temporomandibular joint disorder, unspecified (principal); K08.9 Disorder of teeth and supporting structures, unspecified; H92.02 Otalgia, left ear; F17.210 Nicotine dependence, cigarettes, uncomplicated
CPT/HCPCS: 99282; J7512

== ENCOUNTER 2019-07-26 10:04 | Emergency (ER) | payer SELFPAY ==
[2019-07-26 11:05] LABS: HEMOGLOBIN 8.2 g/dL (12.0-15.5); MEAN CORPUSCULAR HGB CONC 30.5 g/dL (32.0-36.0); PLATELET COUNT 588 10^3/uL (150-450); RED BLOOD COUNT 4.33 10^6/uL (3.72-5.28); RED CELL DISTRIBUTION WIDTH 18.6 % (11.5-14.0); WHITE BLOOD COUNT 8.6 10^3/uL (4.0-10.5)
[2019-07-26 11:21] LABS: MEAN CORPUSCULAR VOLUME 62 fl (80-97)
[2019-07-26 11:32] LABS: APPEARANCE,URINE SLIGHTLY-CLOUDY; BILIRUBIN,URINE NEGATIVE (NEGATIVE); COLOR,URINE YELLOW; GLUCOSE, URINE NEGATIVE (NEGATIVE); KETONES,URINE NEGATIVE (NEGATIVE); LEUKOCYTE ESTERASE,URINE NEGATIVE (NEGATIVE); NITRITE,URINE NEGATIVE (NEGATIVE); PROTEIN,URINE NEGATIVE (NEGATIVE); UROBILINOGEN,URINE NEGATIVE mg/dL (<2.0)
[2019-07-26 11:33] LABS: ALKALINE PHOSPHATASE 57 U/L (38-126); ANION GAP 8 (5-19); ASPARTATE AMINO TRANSFERASE 25 U/L (14-36); BILIRUBIN,DIRECT 0.1 mg/dL (0.0-0.4); BILIRUBIN,TOTAL 0.3 mg/dL (0.2-1.3); BLOOD UREA NITROGEN 12 mg/dL (7-20); CARBON DIOXIDE 27 mmol/L (22-30); CHLORIDE 104 mmol/L (98-107); GLUCOSE 91 mg/dL (75-110); POTASSIUM 4.2 mmol/L (3.6-5.0); TOTAL PROTEIN 7.1 g/dL (6.3-8.2)
[2019-07-26 11:38] LABS: BASOPHILS % (MANUAL) 3 % (0-2); EOSINOPHILS % (MANUAL) 3 % (0-6); LYMPHOCYTES % (MANUAL) 12 % (13-45); MONOCYTES % (MANUAL) 9 % (3-13); SEGMENTED NEUTROPHILS % (MAN) 73 % (42-78); TOTAL CELLS COUNTED 100
[2019-07-26 11:39] LABS: ANISOCYTOSIS 2+; BURR CELLS SLIGHT; HYPOCHROMASIA 1+; OVALOCYTES SLIGHT; PLATELET COMMENT INCREASED; POIKILOCYTOSIS 1+; POLYCHROMASIA SLIGHT; SCHISTOCYTES SLIGHT; TARGET CELLS SLIGHT
[2019-07-26] MEDS ORDERED: ONDANSETRON ODT 4 MG TAB (6 TAB/ER DISP) PO PRN (12:34)
--- NOTE | 2019-07-26 12:38 | ER Document Report ---
HPI - HPI Patient complains to provider of: work release Time Seen by Provider: 07/26/19 12:28 Pain Level: Denies Context: 44-year-old female presents the emergency department requesting a return to work note. Patient states that she was ill on Monday and had some type of a GI illness. She states that she was nauseated, had vomiting, had diarrhea. Patient states that all of her symptoms have resolved and she has not had diarrhea in greater than 24 hours and no nausea or vomiting over the last couple of days. Patient states that she feels slightly weak but attributes it to poor appetite over the week. Patient denies any fevers or chills, dizziness or lightheadedness, focal weakness in any of her limbs, denies headache, denies sore throat, denies acute pain, denies abdominal pain, denies any urinary symptoms. Patient states that her oral intake is back to normal since yesterday afternoon. No other complaints. - REPRODUCTIVE Reproductive: DENIES: : Past Medical History - Social History Smoking Status: Current Every Day Smoker Family History: Reviewed & Not Pertinent Patient has suicidal ideation: No Patient has homicidal ideation: No Renal/ Medical History: Reports: Hx Ovarian Cysts. Denies: Hx Peritoneal Dialysis Past Surgical History: Reports: Other - THORACOTOMY - Immunizations Immunizations up to date: Yes Hx Diphtheria, Pertussis, Tetanus Vaccination: No Vertical Provider Document - CONSTITUTIONAL Notes: PHYSICAL EXAMINATION: Reviewed vital signs and charting by RN GENERAL: Alert, interacts well. No acute distress. HEAD: Normocephalic, atraumatic. EYES: Pupils equal and round. Extraocular movements intact. ENT: Oral mucosa moist, tongue midline. NECK: Full range of motion. Trachea midline. LUNGS: Clear to auscultation bilaterally, no wheezes, rales, or rhonchi. No respiratory distress. HEART: Regular rate and rhythm. No murmur ABDOMEN: soft, non-tender. No distention. Bowel sounds present EXTREMITIES: Moves all 4 extremities spontaneously. No edema, No cyanosis. PSYCH: Normal affect, normal mood. SKIN: Warm, dry, normal turgor. No rashes or lesions noted. - INFECTION CONTROL TRAVEL OUTSIDE OF THE [place] IN LAST 30 DAYS: No Course - Re-evaluation Re-evalutation: 07/26/19 12:36 Well-appearing in no acute distress, normal physical exam, patient has been symptom-free for greater than 24 hours and there is no evidence of infectious process at this time. Patient will be given a work note to return today. She is stable for discharge. - Vital Signs Vital signs: Temp Pulse Resp BP Pulse Ox 98.5 F 72 16 123/79 100 07/26/19 10:17 07/26/19 10:17 07/26/19 10:17 07/26/19 10:17 07/26/19 10:17 - Laboratory Result Diagrams: 07/26/19 10:43 07/26/19 10:43 Laboratory results interpreted by me: 07/26/19 07/26/19 10:43 10:43 Hgb 8.2 L Hct 27.0 L MCV 62 L MCH 19.0 L MCHC 30.5 L RDW 18.6 H Plt Count 588 H Lymphocytes % (Manual) 12 L Basophils % (Manual) 3 H Abs Monocytes (Manual) 3.0 H Abs Basophils (Manual) 0.3 H Urine Blood SMALL H Discharge - Discharge Clinical Impression: Return to work exam Condition: Good Disposition: HOME, SELF-CARE Additional Instructions: Your physical exam was normal and there is no evidence that there is an infectious process at this time. You have not had any symptoms for greater than 24 hours and your vital signs are within normal limits. You are cleared to return to work today. Please return to the emergency department if you do have returning symptoms, you pass out, you have acute weakness, you have severe shortness of breath or chest pain, or you have any other concerning symptoms. Forms: Return to Work
[2019-07-26 12:57] VITALS: BP 129/84
[2019-07-29 12:22] LABS: PATH REVIEW PATHOLOGIST REVIEWED
== END 2019-07-26 12:57 | disposition home or self-care (01) ==
LOC: ER 10:04
DX: R11.2 Nausea with vomiting, unspecified (principal); R19.7 Diarrhea, unspecified; R53.1 Weakness; F17.200 Nicotine dependence, unspecified, uncomplicated
CPT/HCPCS: 36415; 80053; 81001; 81025; 83690; 85025; 99284

== ENCOUNTER 2020-09-28 13:57 | Emergency (ER) | payer SELFPAY ==
[2020-09-28] MEDS ORDERED: IBUPROFEN 600 MG TABLET PO ONE (15:38)
[2020-09-28] MEDS ORDERED: PENICILLIN V POTASSIUM 500 MG TABLET PO ONE (15:38)
--- NOTE | 2020-09-28 15:42 | ER Document Report ---
ED Medical Screen (RME) - General Chief Complaint: Abdominal Pain Stated Complaint: TOOTH PAIN Time Seen by Provider: 09/28/20 15:32 Mode of Arrival: Ambulatory Information source: Patient Notes: 45-year-old female presented to ED for complaint of pain to tooth #18 we will give her ibuprofen and penicillin VK for the stress. She also has right pelvic pain that has been on and off for about a year but is much worse today. She states she does have a history of an ovarian cyst but this pain is much worse than normal she states her last menstrual period was 09/08/2020. We will get blood urine and transvaginal ultrasound. I have greeted and performed a rapid initial assessment of this patient. A comprehensive ED assessment and evaluation of the patient, analysis of test results and completion of medical decision making process will be conducted by an additional ED providers. TRAVEL OUTSIDE OF THE [place] IN LAST 30 DAYS: No - Related Data Allergies/Adverse Reactions: seafood Allergy (Severe, Uncoded 07/26/19 11:53) Past Medical History Renal/ Medical History: Reports: Hx Ovarian Cysts. Denies: Hx Peritoneal Dialysis Past Surgical History: Reports: Other - THORACOTOMY - Immunizations Immunizations up to date: Yes Hx Diphtheria, Pertussis, Tetanus Vaccination: No Physical Exam - Vital signs Vitals: Temp Pulse Resp BP Pulse Ox 98.4 F 97 20 128/75 H 100 09/28/20 14:38 09/28/20 14:38 09/28/20 14:38 09/28/20 14:38 09/28/20 14:38 Course - Vital Signs Vital signs: Temp Pulse Resp BP Pulse Ox 98.4 F 97 20 128/75 H 100 09/28/20 14:38 09/28/20 14:38 09/28/20 14:38 09/28/20 14:38 09/28/20 14:38
[2020-09-28 16:30] LABS: APPEARANCE,URINE SLIGHTLY-CLOUDY; BILIRUBIN,URINE NEGATIVE (NEGATIVE); COLOR,URINE YELLOW; GLUCOSE, URINE NEGATIVE (NEGATIVE); KETONES,URINE NEGATIVE (NEGATIVE); LEUKOCYTE ESTERASE,URINE TRACE (NEGATIVE); NITRITE,URINE NEGATIVE (NEGATIVE); PROTEIN,URINE 30 mg/dL (NEGATIVE); URINE SPECIFIC GRAVITY 1.024
[2020-09-28 16:45] LABS: HEMATOCRIT 20.3 % (36.0-47.0); MEAN CORPUSCULAR HEMOGLOBIN 15.6 pg (27.0-33.4); MEAN CORPUSCULAR HGB CONC 29.8 g/dL (32.0-36.0); PLATELET COUNT 469 10^3/uL (150-450); RED BLOOD COUNT 3.87 10^6/uL (3.72-5.28); RED CELL DISTRIBUTION WIDTH 20.8 % (11.5-14.0); WHITE BLOOD COUNT 5.4 10^3/uL (4.0-10.5)
[2020-09-28 16:52] LABS: HEMOGLOBIN 6.1 g/dL (12.0-15.5)
[2020-09-28 16:56] LABS: ALBUMIN 4.1 g/dL (3.5-5.0); ALKALINE PHOSPHATASE 50 U/L (38-126); ANION GAP 6 (5-19); ASPARTATE AMINO TRANSFERASE 25 U/L (14-36); BILIRUBIN,DIRECT 0.2 mg/dL (0.0-0.4); BILIRUBIN,TOTAL 0.4 mg/dL (0.2-1.3); BLOOD UREA NITROGEN 13 mg/dL (7-20); CARBON DIOXIDE 28 mmol/L (22-30); CHLORIDE 103 mmol/L (98-107); GLUCOSE 108 mg/dL (75-110); POTASSIUM 4.3 mmol/L (3.6-5.0); TOTAL PROTEIN 7.2 g/dL (6.3-8.2)
[2020-09-28 17:02] LABS: MEAN CORPUSCULAR VOLUME 53 fl (80-97)
[2020-09-28 17:11] LABS: ABSOLUTE LYMPHOCYTES# (MANUAL) 1.6 10^3/uL (0.5-4.7); ABSOLUTE MONOCYTES # (MANUAL) 0.7 10^3/uL (0.1-1.4); BASOPHILS % (MANUAL) 1 % (0-2); EOSINOPHILS % (MANUAL) 6 % (0-6); LYMPHOCYTES % (MANUAL) 30 % (13-45); MONOCYTES % (MANUAL) 13 % (3-13); SEGMENTED NEUTROPHILS % (MAN) 50 % (42-78); TOTAL CELLS COUNTED 100
[2020-09-28 17:12] LABS: ANISOCYTOSIS 3+; BURR CELLS SLIGHT; HYPOCHROMASIA 1+; OVALOCYTES SLIGHT; PLATELET COMMENT INCREASED; PLATELET GIANT PRESENT; POIKILOCYTOSIS 2+; SCHISTOCYTES SLIGHT; TARGET CELLS 2+; TEAR DROP CELLS SLIGHT
--- NOTE | 2020-09-28 18:43 | ER Document Report ---
ED General - General Chief Complaint: Abdominal Pain Stated Complaint: TOOTH PAIN Time Seen by Provider: 09/28/20 15:32 Primary Care Provider: LORAINE SMITH MD [ACTIVE STAFF] - Follow up as needed Mode of Arrival: Ambulatory TRAVEL OUTSIDE OF THE [place] IN LAST 30 DAYS: No - HPI Notes: 45-year-old female presents to the emergency department for tooth pain. Patient states she has been having pain to the left lower side for about a month. She has not seen a dentist. Has trialed [id number] medications without relief. Additionally states she has had suprapubic pain ongoing for the past year, states that she can feel a knot, she is not received an evaluation for this stating that she was afraid of Covid. She reports heavy vaginal bleeding. She also reports she eats a lot of cornstarch. Her last menstrual cycle was 09/08/2020, she is not currently bleeding. - Related Data Allergies/Adverse Reactions: seafood Allergy (Severe, Uncoded 07/26/19 11:53) Past Medical History - General Information source: Patient - Social History Smoking Status: Unknown if Ever Smoked Family History: Reviewed & Not Pertinent Patient has homicidal ideation: No Renal/ Medical History: Reports: Hx Ovarian Cysts. Denies: Hx Peritoneal Dialysis Past Surgical History: Reports: Other - THORACOTOMY - Immunizations Immunizations up to date: Yes Hx Diphtheria, Pertussis, Tetanus Vaccination: No Review of Systems - Review of Systems Constitutional: denies: Fever EENT: Dental problem Cardiovascular: denies: Chest pain Respiratory: denies: Short of breath Gastrointestinal: denies: Diarrhea, Nausea, Vomiting Genitourinary: denies: Dysuria Female Genitourinary: Heavy/abnormal periods Musculoskeletal: No symptoms reported Skin: No symptoms reported Hematologic/Lymphatic: No symptoms reported Neurological/Psychological: No symptoms reported Physical Exam - Vital signs Vitals: Temp Pulse Resp BP Pulse Ox 98.4 F 97 20 128/75 H 100 09/28/20 14:38 09/28/20 14:38 09/28/20 14:38 09/28/20 14:38 09/28/20 14:38 - General General appearance: Appears well, Alert In distress: None - HEENT Head: Normocephalic, Atraumatic Pupils: PERRL Mucous membranes: Moist Teeth diagram: 1 - Half of tooth remaining, no surrounding erythema or swelling - Respiratory Breath sounds: Normal - Cardiovascular Rhythm: Regular Heart sounds: Normal auscultation - Abdominal Distension: No distension Tenderness: Nontender - Extremities General upper extremity: Normal ROM General lower extremity: Normal ROM - Neurological Neuro grossly intact: Yes Cognition: Normal Orientation: AAOx4 - Psychological Associated symptoms: Normal affect - Skin Skin Temperature: Warm Course - Re-evaluation Re-evalutation: 45-year-old female here with left molar pain x1 month, on exam she has about half of the tooth remaining, she does have significant dental decay to other teeth, there is no surrounding erythema or swelling to the affected tooth. Patient had additionally complained of suprapubic pain at triage which prompted labs and an ultrasound. Ultrasound has resulted showing multiple fibroids. On labs patient appears to have microcytic anemia with hemoglobin of 6. Will start with iron studies given her report of eating cornstarch/pica and this is what her differential suggest. Patient essentially asymptomatic, hemodynamically stable. I discussed with her option of transfusing, she would like to discuss with her daughter and decide. 09/28/20 19:38 Patient has decided she would like a blood transfusion 09/28/20 20:36 Anemia studies suggestive of iron deficiency, have ordered oral iron and vitamin C 09/29/20 01:41 Blood transfusion has finished, patient tolerated well. She is remained hemodynamically stable while in the emergency department. She would like to go home at this time. I feel that this is reasonable given that it was a fairly incidental finding on her lab work. I discussed with her need to follow-up with [facility] and to see a dentist. Patient states that she would like to go to [facility] to establish care. I discussed with her I will still provide local contacts. Will discharge her with iron and vitamin C. Return precautions given, stable at time of discharge. - Vital Signs Vital signs: Temp Pulse Resp BP Pulse Ox 99 F 69 19 134/87 H 100 09/28/20 22:45 09/29/20 01:33 09/29/20 02:32 09/29/20 02:32 09/29/20 02:32 - Laboratory Results Result Diagrams: 09/28/20 16:00 09/28/20 16:00 Laboratory Results Interpreted: 09/28/20 09/28/20 09/28/20 16:00 16:00 16:00 Hgb 6.1 L Hct 20.3 L MCV 53 L MCH 15.6 L MCHC 29.8 L RDW 20.8 H Plt Count 469 H Iron TIBC Ferritin Vitamin B12 935.0 H Urine Protein 30 H Urine Urobilinogen 4.0 H Ur Leukocyte Esterase TRACE H Crossmatch 09/28/20 09/28/20 16:00 20:25 Hgb Hct MCV MCH MCHC RDW Plt Count Iron 16.7 L TIBC 533 H Ferritin 4.82 L Vitamin B12 Urine Protein Urine Urobilinogen Ur Leukocyte Esterase Crossmatch See Detail Critical Laboratory Results Reviewed: Yes Attending or Supervising Physician who Reviewed Labs: CINTIA PAIGE - Radiology Results Critical Radiology Results Reviewed: No Critical Results Discharge - Discharge Clinical Impression: Pain due to dental caries Uterine fibroid Qualifiers: Uterine leiomyoma location: unspecified location Qualified Code(s): D25.9 - Leiomyoma of uterus, unspecified Iron deficiency anemia Qualifiers: Iron deficiency anemia type: unspecified iron deficiency Qualified Code(s): D50.9 - Iron deficiency anemia, unspecified Disposition: HOME, SELF-CARE Additional Instructions: Please begin daily use of iron and vitamin C. Caution that taking iron can cause her stools to turn dark. Please establish care with an [facility] for the uterine fibroids, I understand you want to go to [facility], however I have provided contact information for [facility] in the [place] area. Please also see a dentist as soon as possible. Return to the emergency department for any concerning worsening symptoms. Prescriptions: Ferrous Sulfate 325 mg PO BID 30 Days #60 tablet. Ascorbic Acid [Vitamin C 500 mg Tablet] 500 mg PO DAILY #30 tablet Referrals: LORAINE SMITH MD [ACTIVE STAFF] - Follow up as needed
--- NOTE | 2020-09-28 18:44 | RADIOLOGY REPORT (SQ) ---
EXAM DESCRIPTION: U/S NON-OB PELVIS W/O DOP IMAGES COMPLETED DATE/TIME: 09/28/2020 5:19 pm REASON FOR STUDY: Right pelvic pain COMPARISON: 2013 TECHNIQUE: Dynamic and static grayscale images acquired of the pelvis via transabdominal approach an d recorded on PACS. Additional selected color Doppler and spectral images recorded. LIMITATIONS: None. FINDINGS: UTERUS: Multiple uterine fibroids including large pedunculated fibroid measuring 5.7 cm in largest diameter. The largest fibroid that is non pedunculated measures 5.3 cm in largest diameter. ENDOMETRIAL STRIPE: No focal or generalized thickening. No masses. CERVIX: Poorly seen. RIGHT OVARY AND DOPPLER: Normal size. No worrisome masses. Normal arterial vascular flow without evid ence for torsion. LEFT OVARY AND DOPPLER: Normal size. 3.7 cm cyst. No worrisome masses. Normal arterial vascular edith w without evidence for torsion. FREE FLUID: None noted. OTHER: No other significant finding. MEASUREMENTS: UTERUS: 8.9 x 6.9 x 5.2 cm. ENDOMETRIAL STRIPE: 5 mm. RIGHT OVARY: 3 x 2.3 x 1.4 cm. LEFT OVARY: 4.4 x 4.1 x 3.5 cm. IMPRESSION: 1. Multiple uterine fibroids as described. 2. 3.7 cm left ovarian cyst is almost certainly benign. No additional imaging is required for this. TECHNICAL DOCUMENTATION: JOB ID: [id number] 2010 [employer]- All Rights Reserved Rev-02/16 Reading location - IP/workstation name: [email or web address]
[2020-09-28] MEDS ORDERED: HYDROCODONE/ACETAMINOPHEN 5-325 MG TABLET PO ONE (18:59)
[2020-09-28 19:08] LABS: ABSOLUTE RETICS # 0.044 10^6/uL (0.028-0.122); RETICULOCYTE COUNT (AUTO) 1.14 % (0.66-2.85)
[2020-09-28 19:23] LABS: IRON(TIBC) 16.7 ug/dL (37-170)
[2020-09-28] MEDS ORDERED: NORMAL SALINE 250 ML IV PRN ×2 (19:38)
[2020-09-28 20:01] LABS: FERRITIN 4.82 ng/mL (6.2-137.0)
[2020-09-28] MEDS ORDERED: ASCORBIC ACID 500 MG TABLET PO ONE (20:29)
[2020-09-28] MEDS ORDERED: IRON POLYSACCHARIDES COMPLEX 150 MG CAPSULE PO ONE (20:29)
[2020-09-28 20:32] LABS: FOLATE 6.83 ng/mL (>2.76)
[2020-09-29 03:17] VITALS: BP 136/93
[2020-09-29 13:12] LABS: PATH REVIEW PATHOLOGIST REVIEWED
== END 2020-09-29 03:20 | disposition home or self-care (01) ==
LOC: ER 13:57
DX: K02.9 Dental caries, unspecified (principal); D50.9 Iron deficiency anemia, unspecified; K08.89 Other specified disorders of teeth and supporting structures; D25.9 Leiomyoma of uterus, unspecified; N83.202 Unspecified ovarian cyst, left side; Z91.013 Allergy to seafood
CPT/HCPCS: 99285; 86900; 86901; 36415; 87086; 36430; 86850; 82607; 82728; 82746; 83540; 83550; 84703; 85025; 87088; 85045; 80053; 81001; 87186; 86920; 76856; P9016